=== PATIENT | female | born 1975 | race Caucasian/White ===

== ENCOUNTER → 2017-01-28 | Outpatient (CLI) | payer MEDICAID ==
[~2017-01-28] MED LIST: AMOXIL875 MG PO; PNV-SELECT1 TAB; PROMETRIUM200 MG
[2017-01-28 12:50] LABS: HEMOGLOBIN 14.8 g/dL (12.2-16.2); LYMPH % 30.9 % (10-50.0)
[2017-01-28 13:38] LABS: BUN 9 mg/dL (7-18)
[2017-01-28 13:40] LABS: GFR (ESTIMATED) 110 ML/MIN (59-)
[2017-01-29 06:36] LABS: HIV Screen 4th Generation wRfx Non Reactive (Non Reactive)
[2017-01-29 08:40] LABS: HBsAg Screen Negative (Negative); Hep A Ab, IgM Negative (Negative); Hep B Core Ab, IgM Negative (Negative); Hep C Virus Ab <0.1 (0.0-0.9); Rapid Plasma Reagin, Quant Non Reactive (NonRea<1:1); Vitamin B12 366 pg/mL (211-946)
[2017-01-31 16:36] LABS: Neisseria gonorrhoeae, NAA Negative (Negative)
== END ==
LOC: LAB 12:13
PROVIDERS: Nurse Practitioner Family
DX: Z13.9 Encounter for screening, unspecified (principal); Z00.00 Encounter for general adult medical examination without abnormal findings; R63.4 Abnormal weight loss; E55.9 Vitamin D deficiency, unspecified
CPT/HCPCS: G0432

== ENCOUNTER → 2017-03-18 | Outpatient (CLI) | payer MEDICAID ==
--- NOTE | 2017-03-25 08:48 | RADIOLOGY REPORT PS360 ---
DIG MAMM-SCREEN DIAMOND W/CAD CAD Screening COMPARISON: Digital mammograms 07/10/2010 and 03/12/2016 INDICATION: There is a history of breast cancer patient's mother diagnosed at age 45 TECHNIQUE: Standard CC and MLO images were obtained. R2 CAD reviewed. FINDINGS: There is a diffusely dense and heterogenic parenchymal pattern somewhat lessening the sensitivity of mammography. There is no new or suspicious lesion in either breast and there are no suspicious microcalcifications. IMPRESSION: Dense parenchymal pattern no suspicious lesion seen recommend yearly follow-up BI-RADS CATEGORY: 1_Negative RECOMMENDED FOLLOWUP: 12M 12 MONTH FOLLOW-UP (A letter has been sent to the patient regarding results of the study.)
== END ==
LOC: RAD 07:57
DX: Z12.31 Encounter for screening mammogram for malignant neoplasm of breast (principal)
CPT/HCPCS: G0202

== ENCOUNTER 2017-10-23 15:43 | Emergency (ER) | payer MEDICAID ==
[~2017-10-23] VITALS: Ht 167.6 cm; Wt 51.3 kg
[~2017-10-23 15:43] MED LIST changes: +ZOLOFT 50MG TAB50 MG
[2017-10-23] MEDS ORDERED: B12 INJ.,1000 MCG/M IM (15:54)
--- OUTSIDE RECORDS SUMMARY | 2017-10-23 16:04 | External Medical Summary Rpt | CCD ---
Demographics Preferred Language Pashto Marital Status Unknown Sikh Affiliation Unknown Race Unknown Ethnic Group Unknown Author Author , JIMMY MARQUEZ Address Unknown Phone Immunization Unable to retrieve immunization data due to connection failure with Immunization Registry. Please try again later.
--- OUTSIDE RECORDS SUMMARY | 2017-10-23 16:04 | External Medical Summary Rpt | CCD ---
Demographics Preferred Language Czech Marital Status Unknown Sabianist Affiliation Unknown Race Unknown Ethnic Group Unknown Author Author , JIMMY MARQUEZ Address Unknown Phone Immunization Unable to retrieve immunization data due to connection failure with Immunization Registry. Please try again later.
--- OUTSIDE RECORDS SUMMARY | 2017-10-23 16:04 | External Medical Summary Rpt ---
Author Author JIMMY Echevarria, [employer] Organization [employer] Address Unknown Phone Unavailable
--- OUTSIDE RECORDS SUMMARY | 2017-10-23 16:04 | External Medical Summary Rpt | CCD ---
Author Author , JIMMY MARQUEZ Address Unknown Phone [email or web address] Purpose Continuity of Care Document - through 2016
--- OUTSIDE RECORDS SUMMARY | 2017-10-23 16:04 | External Medical Summary Rpt | CCD ---
Author Author [employer] Organization [employer] Address Unknown Phone Unavailable Purpose Continuity of Care Document - through 2016
--- OUTSIDE RECORDS SUMMARY | 2017-10-23 16:04 | External Medical Summary Rpt | CCD ---
Author Author , JIMMY MARQUEZ Address Unknown Phone [email or web address] Purpose Continuity of Care Document - through 2016
[2017-10-23 16:06] LABS: LYMPH # 2.2 K/mm3 (0.7-4.5); LYMPH % 32.6 % (10-50.0)
--- NOTE | 2017-10-23 16:10 | Emergency Room Report ---
History of Present Illness Time Seen by [id number] Presenting Problem in Triage Pt arrived:Walked Presenting Problem:CHEST PAIN/PRESSURE THAT STARTED YESTERDAY. 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 N Clinical Suspician of Infection? N Mental Status: 1 - Regular (Normal Baseline) Sepsis Risk:Low Sepsis Risk Have you (or family members/close friends) recently traveled outside the [place]? N If Yes, where/when: Have you had exposure to infectious disease within the past month? N TB? Other? Specify: Source patient, RN notes reviewed, old records Exam Limitations no limitations Comment intermittent episodes of chest pain with feeling of sob -pt w/o melena or known ht disease Cardiac Chest Pain Chest pain indicative of cardiac No Timing/Duration this evening Severity moderate ALLERGIES Coded Allergies: Penicillins (10/23/17) ampicillin (10/23/17) morphine (10/23/17) Home Medications Reported Medications Vitamin B12 (Cyanocobalamin Injection) 1,000 MCG IM MONTHLY #1 Sertraline Hcl (Zoloft 50MG) History Medical History General Angina: No CT: No Hypertension? No Hyperlipidemia? No CHF? No COPD? No Asthma? No CVA? No Seizures? No Diabetes? No Stones? No GB Disease: No Asplenia? No MRSA? No TB? No Cancer? 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 Respiratory see HPI, denies cough, shortness of breath, denies wheezing Cardiovascular denies chest pain, denies palpitations, denies syncope Gastrointestinal see HPI, denies diarrhea, denies vomiting, other Genitourinary denies: dysuria, frequency, hesitancy, hematuria. Musculoskeletal denies back pain, denies joint pain, denies joint swelling, denies neck pain Skin denies rash Psychiatric/Neurological denies headache, denies seizure Physical Exam Vital Signs Vital Signs Date Time Temp Pulse Resp B/P Pulse O2 O2 Flow FiO2 Ox Delivery Rate 10/23 1701 98.6 75 18 116/68 100 12 1545 98.6 73 18 131/80 99 - WBC >12,000 or <4,000 or 10% bands? 2 or more SIRS Criteria Met? B/P:116/68 MAP:97 Creatinine >2.0? UA output<0.5ml/kg/hr for 2 hrs? Platelet count >100,000? Lactate >2.0mmol/1? INR >1.2 or PTT > than 60 sec? Evidence of Organ Dysfunction? Provider documented clinical suspician of infection? N Sepsis Criteria Count: 0 Sepsis Risk: Low Sepsis Risk General Appearance no apparent distress Eye Exam - bilateral eye PERRL, bilateral eye EOMI Ear, Nose, Throat normal ENT inspection Neck supple Respiratory Status No: respiratory distress. Lung Sounds bilateral: lungs clear. Cardiovascular regular rate/rhythm, no gallop, no JVD, no murmur, no rub Peripheral Pulses Pulses normal Yes Gastrointestinal soft, no organomegaly, no pulsatile mass, no guarding, no rebound Extremities normal inspection Strength 4 Upper Ext (L), 4 Upper Ext (R), 4 Lower Ext (L), 4 Lower Ext (R) Neurologic alert, pondman II-XII nml as tested Reflexes Reflexes normal No Mental status normal mood/affect Skin no rash cons.w/shingles Medical Decision Making LABS/Meds/Orders Pt receiving controlled substance in ED? No Results/Orders Laboratory Tests 10/23/17 1550: Sodium 139, Potassium 3.6, Chloride 105, Carbon Dioxide 29, BUN 14, Creatinine 0.9, Estimated Creat Clear 65, Estimated GFR (MDRD) 68, Glucose 88, Calcium 8.8, Total Bilirubin 0.4, AST 11 L, ALT 16, Alkaline Phosphatase 43 L, Creatine Kinase 97, CK-MB (CK-2) Rel Index 0.5, CK and CKMB Interp < 0.5, Troponin I < 0.02, Total Protein 7.1, Albumin 3.4, Globulin 3.7 H, Albumin/Globulin Ratio 0.9 L, D-Dimer 461 *H, WBC 6.8, RBC 4.58, Hgb 14.0, Hct 41.6, MCV 90.9, RDW 13.3, Plt Count 281, MPV 7.7, Gran % 61.7, Gran # 4.2, Lymphocytes % 32.6, Monocytes % 4.4, Eosinophils % 0.9, Basophils % 0.5, Lymphocytes # 2.2, Monocytes # 0.3, Eosinophils # 0.1, Basophils # 0.0, PUBS MCHC 33.7, MCH 30.6 Current Medication Orders Sig/Zeb Start time Last Medication Dose Route Stop Time Status Admin Iopamidol 60 ML ONCE ONE 10/23 1745 UNV 10/23 IV 10/23 174 1739 Sodium Chloride 50 ML ONCE ONE 10/23 1745 UNV 10/23 IV 10/23 1746 1738 Famotidine 20 MG ONCE ONE 10/23 1630 DC 10/23 IV 10/23 1631 1624 Metoclopramide HCl 10 MG ONCE ONE 10/23 1630 DC 10/23 IVP 10/23 1631 1623 Sodium Chloride 8 ML ONCE ONE 10/23 1630 DC 10/23 IV 10/23 1631 1625 Famotidine 0 .STK-MED ONE 10/23 1621 DC IV Metoclopramide HCl 0 .STK-MED ONE 10/23 1620 DC .ROUTE Sodium Chloride 10 ML PRN PRN 10/23 1600 AC 10/23 IV 10/24 1546 1624 Orders Procedure Date/time Status DIET-NOTHING BY MOUTH 10/[address] CHEST W/PE PROTOCOL REQ 10/23 1702 Complete D-DIMER 10/23 1615 Complete ELECTROCARDIOGRAM REQUEST 10/23 1548 Active IV SALINE LOCK 10/23 1548 Active CBC WITH AUTO DIFF 10/23 1548 Complete CARDIAC ENZYMES 10/23 1548 Complete CHEM 12 PROFILE 10/23 1548 Complete 12 LEAD EKG-KEATON (INITIAL) 10/23 UNK 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 of ischemic chgs XRAY/CT/US XRAY/CT/US 1 XRAY chest XR interpretation by reviewed by me Xray Results normal/NAD XRAY/CT/US [address] interpretation by discussed w/radiologist Time results known: 175 CT Results normal/NAD Departure Departure Time of Disposition 175 Disposition DC Home or Self Care(routine) Clinical Impression Primary Impression: Chest pain Qualifiers: Chest pain type: unspecified Qualified Code: R07.9 - Chest pain, unspecified Condition STABLE Referrals Freddy Ortiz MD (Family) Patient Instructions DI for Atypical Chest Pain Additional Instructions call pcp for follow up Discharge Counseling Counseled pt/family regarding diagnosis, test results, medications/RX, follow up needs ED Critical Care Critical Care No at [phone]
--- NOTE | 2017-10-23 16:10 | Emergency Room Report ---
History of Present Illness Time Seen by [id number] Presenting Problem in Triage Pt arrived:Walked Presenting Problem:CHEST PAIN/PRESSURE THAT STARTED YESTERDAY. 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 N Clinical Suspician of Infection? N Mental Status: 1 - Regular (Normal Baseline) Sepsis Risk:Low Sepsis Risk Have you (or family members/close friends) recently traveled outside the [place]? N If Yes, where/when: Have you had exposure to infectious disease within the past month? N TB? Other? Specify: Source patient, RN notes reviewed, old records Exam Limitations no limitations Comment intermittent episodes of chest pain with feeling of sob -pt w/o melena or known ht disease Cardiac Chest Pain Chest pain indicative of cardiac No Timing/Duration this evening Severity moderate ALLERGIES Coded Allergies: Penicillins (10/23/17) ampicillin (10/23/17) morphine (10/23/17) Home Medications Reported Medications Vitamin B12 (Cyanocobalamin Injection) 1,000 MCG IM MONTHLY #1 Sertraline Hcl (Zoloft 50MG) History Medical History General Angina: No MA: No Hypertension? No Hyperlipidemia? No CHF? No COPD? No Asthma? No CVA? No Seizures? No Diabetes? No Stones? No GB Disease: No Asplenia? No MRSA? No TB? No Cancer? 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 Respiratory see HPI, denies cough, shortness of breath, denies wheezing Cardiovascular denies chest pain, denies palpitations, denies syncope Gastrointestinal see HPI, denies diarrhea, denies vomiting, other Genitourinary denies: dysuria, frequency, hesitancy, hematuria. Musculoskeletal denies back pain, denies joint pain, denies joint swelling, denies neck pain Skin denies rash Psychiatric/Neurological denies headache, denies seizure Physical Exam Vital Signs Vital Signs Date Time Temp Pulse Resp B/P Pulse O2 O2 Flow FiO2 Ox Delivery Rate 10/23 1701 98.6 75 18 116/68 100 12 1545 98.6 73 18 131/80 99 - WBC >12,000 or <4,000 or 10% bands? 2 or more SIRS Criteria Met? B/P:116/68 MAP:97 Creatinine >2.0? UA output<0.5ml/kg/hr for 2 hrs? Platelet count >100,000? Lactate >2.0mmol/1? INR >1.2 or PTT > than 60 sec? Evidence of Organ Dysfunction? Provider documented clinical suspician of infection? N Sepsis Criteria Count: 0 Sepsis Risk: Low Sepsis Risk General Appearance no apparent distress Eye Exam - bilateral eye PERRL, bilateral eye EOMI Ear, Nose, Throat normal ENT inspection Neck supple Respiratory Status No: respiratory distress. Lung Sounds bilateral: lungs clear. 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 No Results/Orders Laboratory Tests 10/23/17 1550: Sodium 139, Potassium 3.6, Chloride 105, Carbon Dioxide 29, BUN 14, Creatinine 0.9, Estimated Creat Clear 65, Estimated GFR (MDRD) 68, Glucose 88, Calcium 8.8, Total Bilirubin 0.4, AST 11 L, ALT 16, Alkaline Phosphatase 43 L, Creatine Kinase 97, CK-MB (CK-2) Rel Index 0.5, CK and CKMB Interp < 0.5, Troponin I < 0.02, Total Protein 7.1, Albumin 3.4, Globulin 3.7 H, Albumin/Globulin Ratio 0.9 L, D-Dimer 461 *H, WBC 6.8, RBC 4.58, Hgb 14.0, Hct 41.6, MCV 90.9, RDW 13.3, Plt Count 281, MPV 7.7, Gran % 61.7, Gran # 4.2, Lymphocytes % 32.6, Monocytes % 4.4, Eosinophils % 0.9, Basophils % 0.5, Lymphocytes # 2.2, Monocytes # 0.3, Eosinophils # 0.1, Basophils # 0.0, PUBS MCHC 33.7, MCH 30.6 Current Medication Orders Sig/Zeb Start time Last Medication Dose Route Stop Time Status Admin Iopamidol 60 ML ONCE ONE 10/23 1745 UNV 10/23 IV 10/23 174 1739 Sodium Chloride 50 ML ONCE ONE 10/23 1745 UNV 10/23 IV 10/23 1746 1738 Famotidine 20 MG ONCE ONE 10/23 1630 DC 10/23 IV 10/23 1631 1624 Metoclopramide HCl 10 MG ONCE ONE 10/23 1630 DC 10/23 IVP 10/23 1631 1623 Sodium Chloride 8 ML ONCE ONE 10/23 1630 DC 10/23 IV 10/23 1631 1625 Famotidine 0 .STK-MED ONE 10/23 1621 DC IV Metoclopramide HCl 0 .STK-MED ONE 10/23 1620 DC .ROUTE Sodium Chloride 10 ML PRN PRN 10/23 1600 AC 10/23 IV 10/24 1546 1624 Orders Procedure Date/time Status DIET-NOTHING BY MOUTH 10/[address] CHEST W/PE PROTOCOL REQ 10/23 1702 Complete D-DIMER 10/23 1615 Complete ELECTROCARDIOGRAM REQUEST 10/23 1548 Active IV SALINE LOCK 10/23 1548 Active CBC WITH AUTO DIFF 10/23 1548 Complete CARDIAC ENZYMES 10/23 1548 Complete CHEM 12 PROFILE 10/23 1548 Complete 12 LEAD EKG-KEATON (INITIAL) 10/23 UNK Active 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 of ischemic chgs XRAY/CT/US XRAY/CT/US 1 XRAY chest XR interpretation by reviewed by me Xray Results normal/NAD XRAY/CT/US [address] interpretation by discussed w/radiologist Time results known: 175 CT Results normal/NAD Departure Departure Time of Disposition 175 Disposition DC Home or Self Care(routine) Clinical Impression Primary Impression: Chest pain Qualifiers: Chest pain type: unspecified Qualified Code: R07.9 - Chest pain, unspecified Condition STABLE Referrals Freddy Ortiz MD (Family) Patient Instructions DI for Atypical Chest Pain Additional Instructions call pcp for follow up Discharge Counseling Counseled pt/family regarding diagnosis, test results, medications/RX, follow up needs ED Critical Care Critical Care No at [id number]
[2017-10-23 16:22] LABS: BUN 14 mg/dL (7-18)
[2017-10-23 16:25] LABS: GFR (ESTIMATED) 68 ML/MIN (59-)
--- NOTE | 2017-10-23 17:48 | RADIOLOGY REPORT PS360 ---
CHEST-PORTABLE COMPARISON: PA and lateral chest 05/05/2015 HISTORY: Chest pain TECHNIQUE: Portable upright chest FINDINGS: The lung mitchell are well expanded and appear clear of infiltrate. The cardiac silhouette and vascularity are normal and the costo phrenic angles are clear. IMPRESSION: Negative Portable chest
--- NOTE | 2017-10-23 17:51 | RADIOLOGY REPORT PS360 ---
CTA -CHEST COMPARISON: None HISTORY: Chest pain, shortness of breath, elevated d-dimer TECHNIQUE: Multiple axial scans obtained from the thoracic inlet to the hemidiaphragms after rapid injection of IV contrast sagittal and coronal reformats were evaluated as well. FINDINGS: The lung mitchell are well expanded. There is excellent vascular opacification and there is no CT evidence of pulmonary emboli. Cardiac size is normal. The lung mitchell are free of active infiltrate. There is a calcified granuloma right lower lobe and there is minimal focal post inflammatory scarring posterior segment right upper lobe. The screw mistiming is unremarkable in the isaak are normal. There is no pleural fluid. IMPRESSION: Negative for PE
[2017-10-23 17:55] VITALS: BP 116/68
== END 2017-10-23 17:59 | disposition home or self-care (01) ==
LOC: ER 15:43
PROVIDERS: Emergency Medicine
DX: R07.9 Chest pain, unspecified (principal)